=== PATIENT | female | born 1985 | race Two or more races ===

== ENCOUNTER 2023-11-20 16:12 | Emergency (ER) | payer MEDICAID, OTHER ==
[~2023-11-20] VITALS: Ht 172.7 cm; Wt 89.7 kg
[2023-11-20 17:02] VITALS: BP 114/75; PULSE 94; RESP 16; TEMP 98; O2SAT 97
[2023-11-20] MEDS ORDERED: NAPR-746 PO (17:06)
[2023-11-20] MEDS ORDERED: AUG875T PO (17:06)
== END 2023-11-20 17:19 | disposition home or self-care (01) ==
LOC: ER 16:12
DX: S61.032A Puncture wound without foreign body of left thumb without damage to nail, initial encounter (principal); S90.32XA Contusion of left foot, initial encounter; Z79.899 Other long term (current) drug therapy; W54.0XXA Bitten by dog, initial encounter; Y93.89 Activity, other specified; Y92.89 Other specified places as the place of occurrence of the external cause; Y99.8 Other external cause status

== ENCOUNTER 2024-05-23 10:54 | Emergency (ER) | payer MEDICAID ==
[~2024-05-23] VITALS: Ht 172.7 cm; Wt 84.5 kg
[~2024-05-23 10:54] MED LIST: AUG875T PO; NAPR-746 PO
[2024-05-23 12:01] VITALS: BP 140/75; PULSE 95; RESP 18; TEMP 98.8; O2SAT 98
[2024-05-23] MEDS ORDERED: PENI500T2 PO (12:33)
[2024-05-23] MEDS ORDERED: IBUP-1455 PO (12:33)
[2024-05-23] MEDS ORDERED: PROM1SOL4 PO (12:33)
--- NOTE | 2024-05-23 12:33 | ED.PDOC ---
SOB-HPI HPI Comments This is a pleasant 38-year-old female with no MHx that presents with with a chief complaint of URI symptoms x2 days. 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: No Pertinent TRACKMOBILE OPERATOR History Family History Family History: Reviewed,noncontributory to illness Social History Smoker: Non-Smoker Alcohol: Denies ETOH Use Drugs: Denies Drug Use Lives In: Home All Other Systems: Reviewed and Negative (per hpi) Physical Exam General Appearance: No Apparent Distress, Normal HEENT: Normal ENT Inspection, Pharyngeal Erythema (Bilateral tonsillar exudate) , TMs Normal Neck: Full Range of Motion, Non-Tender, Normal, Normal Inspection Respiratory: Chest Non-Tender, Lungs Clear, No Accessory Muscle Use, No Respiratory Distress, Normal Breath Sounds Cardiovascular: No Edema, No JVD, No Murmur, No Gallop, Normal Peripheral Pulses, Regular Rate/Rhythm Breast Exam: Deferred Gastrointestinal: No Organomegaly, Non Tender, No Pulsatile Mass, Normal Bowel Sounds, Soft Genitalia: Deferred Pelvic: Deferred Rectal: Deferred Extremities: No calf tenderness, Normal capillary refill, Normal inspection, Normal range of motion, Non-tender, No pedal edema Musculoskeletal : Apperance: Normal Neurologic: Alert, burr machine operator II-XII nml as Tested, No Motor Deficits, Normal Affect, Normal Mood, No Sensory Deficits Cerebellar Function: Normal Reflexes: Normal Skin: Dry, Normal Color, Warm Lymphatic: No Adenopathy Was a procedure done? Was a procedure done?: No Differential Dx Differential Diagnosis: Bronchitis X-Ray, Labs, Meds, VS Vital Signs Date Time Temp Pulse Resp B/P (MAP) Pulse Ox O2 Delivery O2 Flow Rate FiO2 05/23/24 12:01 95 18 98 Room Air 05/23/24 12:01 98.8 100 18 140/75 (96) 98 98.8 05/23/24 11:00 98.5 100 20 145/77 (99) 96 X-Ray, Labs, Meds, VS Comment Prescribed p.o. antibiotics for presentation of symptoms Complete course of antibiotic therapy even if symptoms improve or resolve. There should be no leftover antibiotics as this can lead to antibiotic resistant bacteria and even worse infection. Patient verbalized understanding. Potential side effects discussed with patient including abdominal pain, nausea, diarrhea. On reevaluation, patient had symptomatic improvement. Patient is stable for discharge at this time. External notes reviewed. Test results and diagnostic imaging interpreted. All diagnostic findings, discharge care, education and instructions provided Follow-up with PCP in 2 to 3 days Patient verbalized understanding and agreed to treatment plan Vital signs stable, afebrile, no acute distress noted Patient ambulatory with strong steady gait Advised to return precautions for any new or worsening symptoms, return to ER immediately for re-evaluation Patient is aware that the purpose of this visit was for an acute medical emergency requiring emergent stabilization. Chronic conditions, including malignancies have not been ruled out. Patient is instructed to follow up with PCP as directed and discharge instructions for continued care and workup. If unable to arrange follow-up, patient is to return to the emergency department for reassessment. Patient (parent or legal guardian if applicable) was given verbal and written discharge instructions and acknowledges understanding. Time of 1ST Reevaluation: 12:31 Reevaluation 1ST: Improved Patient Education/Counseling: Diagnosis, Treatment Family Education/Counseling: Diagnosis, Treatment Departure 1 Departure Time of Disposition: 12:32 Impression: Primary Impression: Tonsillar exudate Additional Impression: Bronchitis Disposition: 01 HOME / SELF CARE / HOMELESS Condition: Stable e-Prescriptions Promethazine-Dm (Promethazine Dm 6.25-15 mg/5Ml) 1 Sue Sue 5 ML PO TIDP PRN for 10 Days, #150 ML 0 Refills Prov: KESHAV LUU PLASTIC EXTRUSION OPERATOR 05/23/24 Ibuprofen Micronized (Ibuprofen) 800 Mg Tab 800 MG PO TID for 10 Days, #30 TAB 0 Refills Prov: KESHAV LUU NP 05/23/24 Penicillin V Potassium (Veetids) 500 Mg Tab 1 TAB PO BID for 10 Days, #20 TAB 0 Refills Prov: KESHAV LUU PLASTIC EXTRUSION OPERATOR 05/23/24 Discharged With: Self Critical Care Note Critical Care Time?: No Stability Stability form required: No Heart Score Heart Score: Heart Score Response (Comments) Value History N/A 0 EKG N/A 0 Age N/A 0 Risk Factors N/A 0 Troponin N/A 0 Total 0 KESHAV LUU PLASTIC EXTRUSION OPERATOR May 23, 2024 12:33
== END 2024-05-23 12:34 | disposition home or self-care (01) ==
LOC: ER 10:54
DX: J40 Bronchitis, not specified as acute or chronic (principal); J03.90 Acute tonsillitis, unspecified

== ENCOUNTER 2024-07-13 18:27 | Emergency (ER) | payer MEDICAID ==
[~2024-07-13] VITALS: Ht 170.2 cm; Wt 82.0 kg
[~2024-07-13 18:27] MED LIST changes: +IBUP-1455 PO; +PENI500T2 PO; +PROM1SOL4 PO
[2024-07-13] MEDS: ALBUTEROL SULF 2.5 MG/0.5ML(0.5%) NEB SOLN HHN ONE (19:36)
[2024-07-13] MEDS: IPRATROPIUM BROM 0.5 MG/2.5ML INH SOL HHN ONE (19:36)
[2024-07-13] MEDS: methylPREDNISolone SOD SUCC 125 MG/2 ML VL IV ONE (19:55)
[2024-07-13 20:01] VITALS: BP 142/85; PULSE 133; RESP 20; TEMP 98.2; O2SAT 100
--- NOTE | 2024-07-13 20:13 | ED.PDOC ---
History of Present Illness HPI Comments This is a 38-year-old female who comes in with chief complaint of cough with some shortness for breath. The patient was having some tightness in the chest. The symptoms started approximately five days ago and now the patient was having a productive cough with green sputum. There has been no fever or chills. Chief Complaint: Flu like Time Seen by MD: 18:58 Primary Care Provider: NONE Reviewed Notes: Nurses Notes, Medications, Allergies Allergies: Coded Allergies: Avocado (Verified Allergy, Unknown, 05/23/24) Banana (Verified Allergy, Unknown, 05/23/24) Home Meds Active Scripts Methylprednisolone (Medrol Dosepak) 4 Mg Victor Manuel, 4 MG PO UD, #21 TAB UAD Prov:VAUGHN BARCENAS MD 07/13/24 Azithromycin (Zithromax) 1 Gm Pow, 1 PACK PO ONCE, #1 PACK Prov:VAUGHN BARCENAS MD 07/13/24 Promethazine-Dm (Promethazine Dm 6.25-15 mg/5Ml) 1 Sue Sue, 5 ML PO TIDP PRN for 10 Days, #150 ML 0 Refills Prov:KESHAV LUU NP 05/23/24 Ibuprofen Micronized (Ibuprofen) 800 Mg Tab, 800 MG PO TID for 10 Days, #30 TAB 0 Refills Prov:KESHAV LUU NP 05/23/24 Penicillin V Potassium (Veetids) 500 Mg Tab, 1 TAB PO BID for 10 Days, #20 TAB 0 Refills Prov:KESHAV LUU NP 05/23/24 Naproxen (Naproxen) 500 Mg Tab, 500 MG PO BID, #30 TAB Prov:JANELLE CRUMP 11/20/23 Amoxicillin & Pot Clavulanate (AUGMENTIN TABLET) 875 Mg Tb, 875 MG PO BID, #14 TAB Prov:JANELLE CRUMP 11/20/23 Information Source: Patient Mode of Arrival: Ambulatory Severity: Moderate Timing: Days (Five days) Duration: Since onset Prehospital treatment: None Location: Chest tightness with some shortness for breath Past Medical History PAST MEDICAL HISTORY: Asthma, Gallstones Surgical History (Other): Right hand surgery FORKLIFT MECHANIC History: No Pertinent FORKLIFT MECHANIC History Family History Family History: Reviewed,noncontributory to illness Social History Smoker: Cigarettes Alcohol: Occasionally Drugs: Denies Drug Use Lives In: Home Constitutional: denies: chills, diaphoresis, fatigue, fever, malaise, sweats, weakness, others EENTM: denies: blurred vision, double vision, ear bleeding, ear discharge, ear drainage, ear pain, ear ringing, eye pain, eye redness, hearing loss, mouth pain, mouth swelling, nasal discharge, nose bleeding, nose congestion, nose pain, photophobia, tearing, throat pain, throat swelling, voice changes, others Respiratory: reports: cough, shortness of breath; denies: hemoptysis, orthopnea, SOB at rest, SOB with excertion, stridor, wheezing, others Cardiovascular: reports: chest pain; denies: dizzy spells, diaphoresis, Dyspnea on exertion, edema, irregular heart beat, left arm pain, lightheadedness, palpitations, PND, syncope, others Gastrointestinal: denies: abdomen distended, abdominal pain, blood streaked bowels, constipated, diarrhea, dysphagia, difficulty swallowing, hematemesis, melena, nausea, poor appetite, poor fluid intake, rectal bleeding, rectal pain, vomiting, others Genitourinary: denies: abnormal vagina bleeding, burning, dyspareunia, dysuria, flank pain, frequency, hematuria, incontinence, pain, , vagina discharge, urgency, others Neurological: denies: dizziness, fainting, headache, left sided numbness, left sided weakness, numbness, paresthesia, pre-existing deficit, right sided numbness, right sided weakness, seizure, speech problems, tingling, tremors, weakness, others Musculoskeletal: denies: back pain, gout, joint pain, joint swelling, muscle pain, muscle stiffness, neck pain, others Integumetry: denies: bruises, change in color, change in hair/nails, dryness, laceration, lesions, lumps, rash, wounds, others Allergic/Immunocompromised: denies: Difficulty Healing, Frequent Infections, Hives, Itching, others Hematologic/Lymphatic: denies: anemia, blood clots, easy bleeding, easy bruising, swollen glands, others Endocrine: denies: excessive hunger, excessive sweating, excessive thirst, excessive urination, flushing, intolerance to cold, intolerance to heat, unexplained weight gain, unexplained weight loss, others Psychiatric: denies: anxiety, bipolar disorder, depression, hopeless, panic disorder, schizophrenia, sleepless, suicidal, others Physical Exam General Appearance: Mild Distress HEENT: Normal ENT Inspection, Pharynx Normal, TMs Normal Neck: Full Range of Motion, Non-Tender, Normal, Normal Inspection Respiratory: Chest Non-Tender, Decreased Breath Sounds, No Accessory Muscle Use, Respiratory Distress, Wheezing Cardiovascular: No Edema, No JVD, No Murmur, No Gallop, Normal Peripheral Pulses, Regular Rate/Rhythm Breast Exam: Deferred Gastrointestinal: No Organomegaly, Non Tender, No Pulsatile Mass, Normal Bowel Sounds, Soft Genitalia: Deferred Pelvic: Deferred Rectal: Deferred Extremities: No calf tenderness, Normal capillary refill, Normal inspection, Normal range of motion, Non-tender, No pedal edema Musculoskeletal : Apperance: Normal Neurologic: Alert, fiber analyst II-XII nml as Tested, No Motor Deficits, Normal Affect, Normal Mood, No Sensory Deficits Cerebellar Function: Normal Reflexes: Normal Skin: Dry, Normal Color, Warm Lymphatic: No Adenopathy Was a procedure done? Was a procedure done?: No Differential Dx Considerations may include: Asthma exacerbation, pneumonia, bronchitis X-Ray, Labs, Meds, VS Vital Signs Date Time Temp Pulse Resp B/P (MAP) Pulse Ox O2 Delivery O2 Flow Rate FiO2 07/13/24 20:01 98.2 133 20 142/85 (104) 100 98.2 07/13/24 19:37 22 99 Room Air* 0 21 07/13/24 19:29 98.2 94 20 121/84 (96) 100 Lab Test 07/13/24 19:38 Range/Units Influenza Type A Antigen Negative Negative Influenza Type B Antigen Positive Negative SARS-CoV-2 Antigen (Rapid) Negative NEGATIVE Current Medications Medications (Trade) Dose Ordered Sig/Norma Route Start Time Stop Time Status Last Admin Methylprednisolone Sodium Succinate (Solu Medrol) 125 mg ONCE ONCE IV 07/13/24 19:15 07/13/24 19:16 DC 07/13/24 19:55 Ipratropium [place] (Atrovent Medneb) 1 mg ONCE ONCE N 07/13/24 19:15 07/13/24 19:16 DC 07/13/24 19:36 Albuterol (Ventolin Medneb) 20 mg ONCE ONCE N 07/13/24 19:15 07/13/24 19:16 DC 07/13/24 19:36 CHEST RADIOGRAPH IMPRESSION: 1. No evidence of acute disease. The patient was influenza B is positive The COVID test negative influenza a are negative At this time, the patient was being discharged The patient will follow up with the primary care doctor The patient was given a continuous breathing treatment of albuterol and Atrovent The patient was given Solu-Medrol 125 mg IV push The patient was discharged with a Medrol Dosepak as well as Zithromax Images Reviewed?: Images reviewed and evaluated by me Time of 1ST Reevaluation: 20:26 Reevaluation 1ST: Unchanged Patient Education/Counseling: Diagnosis, Treatment, Prognosis, Need For Follow Up Family Education/Counseling: No Family Present Departure 1 Departure Time of Disposition: 21:21 Impression: Primary Impression: Acute bronchitis Qualified Codes: J20.9 - Acute bronchitis, unspecified Additional Impression: Influenza B Disposition: 01 HOME / SELF CARE / HOMELESS Condition: Fair e-Prescriptions Methylprednisolone (Medrol Dosepak) 4 Mg Victor Manuel 4 MG PO UD, #21 TAB UAD Prov: VAUGHN BARCENAS MD 07/13/24 Azithromycin (Zithromax) 1 Gm Pow 1 PACK PO ONCE, #1 PACK Prov: VAUGHN BARCENAS MD 07/13/24 Discharged With: Self Critical Care Note Critical Care Time?: No Stability Stability form required: No Heart Score Heart Score: Heart Score Response (Comments) Value History N/A 0 EKG N/A 0 Age N/A 0 Risk Factors N/A 0 Troponin N/A 0 Total 0 I personally scribed for VAUGHN BARCENAS MD ([email or web address]) on 07/13/24 at 20:55. Electronically submitted by Colby Cowart ([email or web address]). VAUGHN BARCENAS MD Jul 13, 2024 20:13
--- NOTE | 2024-07-13 20:44 | DVH ---
CHEST RADIOGRAPH Indication: sob Technique: Frontal and lateral view of the chest was obtained Comparison: None FINDINGS: Lines and Tubes: None Lungs: Clear Pleura: No effusion. No pneumothorax. Cardiomediastinal contours: Unremarkable Bones: Unremarkable IMPRESSION: 1. No evidence of acute disease.
[2024-07-13 21:16] LABS: Rapid Influenza A Negative (Negative)
[2024-07-13 21:19] LABS: COVID19 ANTIGEN SOFIA FIA NEGATIVE (NEGATIVE); Rapid Influenza B Positive (Negative)
[2024-07-13] MEDS ORDERED: AZIT1POW PO (21:23)
[2024-07-13] MEDS ORDERED: METH4PAK PO (21:23)
== END 2024-07-13 21:43 | disposition home or self-care (01) ==
LOC: ER 18:27
DX: J20.9 Acute bronchitis, unspecified (principal); J10.1 Influenza due to other identified influenza virus with other respiratory manifestations; J45.909 Unspecified asthma, uncomplicated; F17.210 Nicotine dependence, cigarettes, uncomplicated; Z79.1 Long term (current) use of non-steroidal anti-inflammatories (NSAID); Z98.890 Other specified postprocedural states; Z79.899 Other long term (current) drug therapy; Z91.018 Allergy to other foods; Z20.822 Contact with and (suspected) exposure to COVID-19
CPT/HCPCS: 36415; 71046; 87426; 87804; 94640; 96374; 99284; J2919